=== PATIENT | male | born 1995 | race American Indian/Alaskan Native ===

== ENCOUNTER 2018-06-03 07:28 | Emergency (ER) | payer MEDICAID, OTHER ==
[2018-06-03 07:31] VITALS: RESP 18
[2018-06-03 07:34] VITALS: BMI 22.4
--- NOTE | 2018-06-03 08:25 | ED PDOC ---
Arrival/HPI - General Chief Complaint: Dizziness/Lightheaded Time Seen by Provider: 06/03/18 07:42 Historian: Patient, Police - History of Present Illness Narrative History of Present Illness (Text): 06/03/18 07:56 23 year old male, with no significant past medical history, presents to the Emergency department accompanied by [employer] for medical evaluation today. As per [employer], patient became agitated while under arrest stating he cannot go to [facility] secondary to claustrophobia and began hitting his head while threatening to harm himself. Patient was subsequently brought to the ED for evaluation. At bedside, patient does not explicitly express suicidal ideation but states he want to harm himself. Patient denies any homicidal ideation. Patient denies any medical complaints including fever, chills, nausea, vomiting, chest pain or shortness of breath. Patient denies any psychiatric history. Time/Duration: Prior to Arrival Symptom Onset: Gradual Symptom Course: Unchanged Activities at Onset: Light Context: Other (Accompanied by [employer]) Past Medical History - Provider Review Nursing Documentation Reviewed: Yes - Infectious Disease Hx of Infectious Diseases: None - Psychiatric Hx Substance Use: Yes Family/Social History - Physician Review Nursing Documentation Reviewed: Yes Family/Social History: Unknown Family HX Smoking Status: Former Smoker Hx Alcohol Use: Yes (used to) Hx Substance Use: Yes Allergies/Home Meds Allergies/Adverse Reactions: Allergies No Known Allergies Allergy (Verified 06/03/18 07:34) Review of Systems - Physician Review All systems were reviewed & negative as marked: Yes - Review of Systems Constitutional: absent: Fevers Respiratory: absent: SOB, Cough Cardiovascular: absent: Chest Pain Gastrointestinal: absent: Abdominal Pain, Diarrhea, Nausea, Vomiting Genitourinary Male: absent: Dysuria, Urinary Output Changes Musculoskeletal: absent: Back Pain, Neck Pain Skin: absent: Rash Neurological: absent: Headache, Dizziness Psychiatric: Other (Wants to harm himself) Physical Exam Vital Signs Reviewed: Yes Vital Signs Temp Pulse Resp BP Pulse Ox 06/03/18 07:28 97.8 F 58 L 18 137/71 100 Temperature: Afebrile Blood Pressure: Normal Pulse: Bradycardic Respiratory Rate: Normal Appearance: Positive for: Well-Appearing, Non-Toxic, Comfortable Pain Distress: None Mental Status: Positive for: Alert and Oriented X 3 - Systems Exam Head: Present: Atraumatic, Normocephalic. No: Tenderness, Contusion, Ecchymosis Pupils: Present: PERRL Extroacular Muscles: Present: EOMI Conjunctiva: Present: Normal Neck: Present: Normal Range of Motion Respiratory/Chest: Present: Clear to Auscultation, Good Air Exchange. No: Respiratory Distress, Accessory Muscle Use Cardiovascular: Present: Regular Rate and Rhythm, Normal S1, S2. No: Murmurs Abdomen: No: Tenderness, Distention, Peritoneal Signs Back: Present: Normal Inspection Upper Extremity: Present: Normal Inspection. No: Cyanosis, Edema Lower Extremity: Present: Normal Inspection. No: Edema Neurological: Present: GCS=15, CN II-XII Intact, Speech Normal, Motor Func Grossly Intact, Normal Sensory Function Skin: Present: Warm, Dry, Normal Color. No: Rashes Psychiatric: Present: Alert, Oriented x 3, Normal Insight, Normal Concentration Medical Decision Making ED Course and Treatment: 06/03/18 07:56 Impression: 23 year old incarcerated male presents to the Emergency department for medical evaluation. Differential Diagnosis included but are not limited to: Agitated during incarceration not likely suicidal Plan: -- EKG -- Reassess and disposition Prior Visits: Notes and results from previous visits were reviewed. Progress Notes: 06/03/18 07:56 EKG: Ordered, reviewed, and independently interpreted the EKG. Rate : 53 BPM Rhythm : Sinus Bradycardia Interpretation : No ST-segment elevations or depressions, no T-wave inversions, normal intervals. Patient was evaluated by Magdalena REYES, who evaluated the patient and cleared him for discharge. Patient was discharged in police custody in no apparent distress. He was [facility]. - EKG Interpretation Interpreted by ED Physician: Yes Type: 12 lead EKG - Scribe Statement The provider has reviewed the documentation as recorded by the Scribe Shiv Randall. All medical record entries made by the Scribe were at my direction and personally dictated by me. I have reviewed the chart and agree that the record accurately reflects my personal performance of the history, physical exam, medical decision making, and the department course for this patient. I have also personally directed, reviewed, and agree with the discharge instructions and disposition. Disposition/Present on Arrival - Present on Arrival Any Indicators Present on Arrival: No History of DVT/PE: No History of Uncontrolled Diabetes: No Urinary Catheter: No History of Decub. Ulcer: No History Surgical Site Infection Following: None - Disposition Have Diagnosis and Disposition been Completed?: Yes Diagnosis: Agitation Disposition: HOME/ ROUTINE Disposition Time: 09:39 Patient Plan: Discharge Condition: IMPROVED Discharge Instructions (ExitCare): Suicide Prevention, Stress Additional Instructions: ABHISHEK KEVIN, thank you for letting us take care of you today. Your provider was Ramses Saxena DO and you were treated for Agitation. The emergency medical care you received today was directed at your acute symptoms. If you were prescribed any medication, please fill it and take as directed. It may take several days for your symptoms to resolve. Return to the Emergency Department if your symptoms worsen, do not improve, or if you have any other problems. PATIENT IS MEDICALLY AND PSYCHIATRICALLY CLEARED TO BE DISCHARGED WITH POLICE FOR INCARCERATION. Please contact your doctor or call one of the physicians/clinics you have been referred to that are listed on the Patient Visit Information form that is incl uded in your discharge packet. Bring any paperwork you were given at discharge with you along with any medications you are taking to your follow up visit. Our treatment cannot replace ongoing medical care by a primary care provider outside of the emergency department. Thank you for allowing the [facility] team to be part of your care today. If you had an X-Ray or CT scan: A Radiologist will review the ED reading if any change in treatment is needed we will contact you. If you had a blood, urine, or wound culture: It will take several days for the results, if any change in treatment is needed we will contact you. If you had an STI test: It will take 48 hours for the results. Please call after 1 week if you have not heard back. Referrals: [facility] [Outside] - Follow up with primary [facility] [place] [Outside] - Follow up with primary Brittni Russell MD [Medical Doctor] - Follow up with primary Forms: [employer] (Lao), WORK NOTE
[2018-06-03 09:35] VITALS: BP 136/75; PULSE 57; TEMP 97.9; O2SAT 99
--- NOTE | 2018-06-03 20:33 | CARD ---
APPROVED REPORT Date of service: 06/03/2018 EKG Measurement Heart [id number] <Conclusion> Sinus bradycardia Early repolarization Otherwise normal ECG
== END 2018-06-03 09:20 ==
LOC: ED 07:28 → MERGE 07:28 → ED 09:20
DX: R45.1 Restlessness and agitation (principal); Z65.3 Problems related to other legal circumstances